=== PATIENT | female | born 1975 | race Caucasian/White ===

== ENCOUNTER 2024-01-31 12:40 | Outpatient (OUT) | payer BC, SELFPAY ==
--- NOTE | 2024-01-31 13:00 | CA_ITS ---
Patient Name: AUSTIN PERRY MR#: [id number] : 1975 Exam Date: 01/31/2024 Ordering Doctor: DR. TOÑA SALTER M.D. ECHOCARDIOGRAM REPORT PROCEDURE: CA ECHO DOPPLER COMPLETE INDICATIONS: Abnormal ECG, hypertension COMPARISON: None. DESCRIPTION: COMPLETE ECHOCARDIOGRAM Real-time transthoracic echocardiography with 2D, M-mode, spectral and color flow Doppler performed. QUALITY: Technically difficult due to patients condition. LEFT VENTRICLE: Normal chamber size. Normal left ventricular wall thickness. Normal systolic function. LV EF: Normal left ventricular ejection fraction, (55-60%). DIASTOLIC: Normal diastolic function. ATRIAL SEPTUM: Visually appears intact. LEFT ATRIUM: Normal chamber size. RIGHT ATRIUM: Normal chamber size. RIGHT VENTRICLE: Normal chamber size. Normal right ventricular systolic function. TRICUSPID VALVE: Normal mobility and thickness. No stenosis with no regurgitation. Unable to assess right-sided pressures due to lack of measurable tricuspid regurgitation. MITRAL VALVE: Normal mobility and thickness. No evidence of mitral valve stenosis. There is no mitral annular calcification. No mitral regurgitation. AORTIC VALVE: Normal trileaflet appearance. No visible sclerosis. Normal leaflet mobility. No evidence of aortic valve stenosis. No aortic regurgitation. AORTIC ROOT: Normal diameter and appearance. PULMONIC VALVE: Not well visualized. No stenosis. No regurgitation. PERICARDIUM: No evidence of pericardial effusion. IVC: PLEURA: CONCLUSION: 1. Normal ventricular function. LVEF is 55 to 60% 2. No significant valvular dysfunction. 3. No pericardial effusion. Adult Echocardiography Procedure Report Left Ventricle LVEDD (3.7 - 5.6 cm): 4.79 cm LVESD (2.2 - 4.0 cm): 2.84 cm LVIVS thickness (0.6 - 1.2 cm): 1.03 cm LVPW thickness (0.5 - 1.0 cm): 0.93 cm e': 0.11 m/s E - e': 6.99 LVOT Max Gradient: 3.47 mm[Hg] LVOT Area (cm2): 0.93 m/s Peak Velocity (LVOT): 0.93 m/s LVOT Diameter 2.30 cm Left Atrium LA Volume Index (2D A2C): 28.42 ml/m2 Left Atrium Systolic Dimension: 3.96 cm Mitral Valve MV E to A Ratio: 0.87 Mitral Valve A-Wave Peak Velocity: 0.85 m/s Mitral Valve E-Wave Peak Velocity: 0.74 m/s Right Ventricle Aorta AO Root Diam: 3.25 cm Ascending Ao Diam: 3.38 cm Aortic Valve AoV Area (Peak Eric): 2.89 cm2, 2.89 cm2 Peak Velocity(Antegrade Flow): 1.33 m/s Peak Gradient(Antegrade Flow): 7.11 mm[Hg] Tricuspid Valve Pulmonic Valve Mean Gradient: 1.95 mm[Hg] Mean Velocity: 0.66 m/s Peak Velocity: 1.01 m/s, 0.94 m/s Peak Gradient: 3.56 mm[Hg], 4.06 mm[Hg] Right Atrium Dictated by: Carlo Duffy M.D. on 01/31/2024 at 16:53 Approved by: Carlo Duffy M.D. on 01/31/2024 at 16:56
== END 2024-01-31 12:41 | disposition home or self-care (01) ==
LOC: CARD 12:40
PROVIDERS: PCP Family Medicine; Visit Provider Internal Medicine Cardiovascular Disease
DX: R94.31 Abnormal electrocardiogram [ECG] [EKG] (principal)
CPT/HCPCS: 93306